=== PATIENT | male | born 1970 | race Caucasian/White ===

== ENCOUNTER 2017-08-28 17:15 | Observation (INO) ==
[2017-08-28] MEDS ORDERED: Naloxone 0.4 MG/ML INJ IVP PRN (21:34)
[2017-08-28] MEDS ORDERED: *HR* Dextrose 50 % in Water (Syg) 50 ML SYRINGE IVP PRN (21:34)
[2017-08-28] MEDS ORDERED: Dextrose Gel 15 GM/37.5 ML TUBE PO PRN ×2 (21:34)
[2017-08-28] MEDS ORDERED: Acetaminophen 325 MG TABLET PO PRN (21:34)
[2017-08-28] MEDS ORDERED: D5% in Water 1,000 ML IVC PRN (21:34)
[2017-08-28] MEDS ORDERED: *HR* OxyCODONE Immed Rel 5 MG TABLET PO PRN (21:34)
[2017-08-28] MEDS ORDERED: Nitroglycerin 0.4 MG TAB.SUBL SL PRN (21:39)
--- NOTE | 2017-08-28 21:44 | Internal Med History&Physical ---
Date of Encounter: 08/28/17 Time of Encounter: 21:20 Assessment and Plan (1) Chest pain Current visit: Yes Status: Acute 1. Will cycle troponins, EKG's. 2. Will order ECHO and tress test to be done in the morning. 3. Will try to obtain old records from [facility] in [place], [place] regarding NSTEMI and LHC. 4. Will consult cardiology if above testing abnormal and/or patient needs invasive work-up. Qualifiers: Chest pain type: precordial pain Qualified Code(s): R07.2 - Precordial pain (2) Syncope Current visit: Yes Status: Acute 1. Will proceed with Carotid Dopplers, ECHO, stress test, and close monitoring on telemetry. 2. Monitor glucose closely. 3. Further work-up if necessary. Qualifiers: Syncope type: unspecified Qualified Code(s): R55 - Syncope and collapse (3) Type 2 diabetes mellitus Current visit: Yes Status: Chronic 1. Will hold oral home meds and monitor glucose closely. 2. Will use SSI and adjust insulin dosing accordingly. Qualifiers: Diabetes mellitus complication status: without complication Diabetes mellitus computer terminal operator insulin use: without computer terminal operator use Qualified Code(s): E11.9 - Type 2 diabetes mellitus without complications (4) DVT prophylaxis Current visit: Yes Status: Acute 1. Heparin SQ. Internal Medicine - H&P: HPI Chief complaint: chest pain Admitted From: Hospital to Hospital Transfer Plans for Post Hospital Care: Home History of present illness: Mr. Andrew is a 47 year old male who presents in transfer from [facility] in [place]. He presented there earlier today after having developed chest pain with subsequent syncope. He woke up from bed having substernal chest pain and pressure, which was similar to his prior MA. He then developed a syncopal spell and passed out briefly while hitting the back of his head on the closet door. There was no witnessed seizure activity. He became arousable and back to his normal senses shortly thereafter. Nonetheless, his called EMS and he was taken to local ER. Workup there was negative. He and requested transfer here to [place] because patient follows with the cardiology group here. He has a history of non-STEMI requiring intervention several years ago. He was hospitalized in [place], [place] at [facility] for that episode which was roughly around 2012 or 2013. Upon my assessment of the patient, he is back to baseline and chest pain-free. His and brother are present and confirm the history. He does not recall event of passing out, but he does recall having chest pain earlier today. He denies any hypoglycemia. He is diabetic but his glucose runs around 130 range. His states she checked his sugar earlier today and it was around 140 when the episode occurred. He has a history of seizure disorder as a young child but has been seizure free for over 30 years. Based upon his history, it does not appear the patient had a seizures today but had a syncopal spell with the chest pain. Patient and deny patient having any fevers, cough, vomiting, diarrhea, headache, or any flulike illness/symptoms. Past Med Surg Social Fam HX - Past Medical History Attestation: Yes The following information was validated with the patient. Source: patient, old records reviewed, obtained from family Medical history: diabetes, GERD, hypertension, myocardial infarction, seizures ( in childhoood -- none in over 30 years) Psychiatric history: no psych history - Past Surgical History Surgical History: angioplasty/stent - Social History Smoking Status: Never smoker Smokeless Tobacco Status: No Alcohol use: none Drug use: none Current living situation: Home, With Family Activity Level: Independent ambulation, Very active Recent Out of Country Travel Within the Last 8 Weeks: No - Family History Mother Hx Family Cardiac Disorders: No Hx Family Respiratory Disorders: No Hx Family Cancer: No Hx Family GI Disorders: No Hx Family Genitourinary Disorders: No Hx Family Endocrine Disorder: No Hx Family Musculoskeletal Disorders: No Hx Family Neuromuscular Disorders: No Hx Family Neurologic Disorders: No Hx Family HEENT Disorders: No Hx Family Autoimmune Disorders: No Hx Family Reproductive Disorders: No Hx Family Psychosocial Disorders: No Hx Family Medical Disorders: No Father Hx Family Cardiac Disorders: Yes (pacer/defibulator) Hx Family Respiratory Disorders: No Hx Family Cancer: No Hx Family Genitourinary Disorders: No Hx Family Endocrine Disorder: Yes (diabetes) Hx Family Musculoskeletal Disorders: No Hx Family Neuromuscular Disorders: No Hx Family Neurologic Disorders: No Hx Family HEENT Disorders: No Hx Family Autoimmune Disorders: No Hx Family Reproductive Disorders: No Hx Family Psychosocial Disorders: No Hx Family Medical Disorders: No Internal Medicine - H&P: Meds Pravastatin Sodium [Pravachol] 40 mg PO HS 11/04/15 [History] Aspirin 81 mg PO DAILY 10/15/16 [History] Cetirizine HCl [24Hour Allergy] 10 mg PO DAILY 10/15/16 [History] Isosorbide MONOnitrate (24 HR) [Imdur] 30 mg PO DAILY 10/15/16 [History] Losartan Potassium [Cozaar] 100 mg PO DAILY 10/15/16 [History] Nitroglycerin [Nitrostat] 0.4 mg SL Q5M PRN 10/15/16 [History] Omeprazole [PriLOSEC] 20 mg PO DAILY 10/15/16 [History] metFORMIN [Glucophage] 500 mg PO BIDWM 10/15/16 [History] Metoprolol [Lopressor] 100 mg PO BID 08/28/17 [History] SitaGLIPtin [Januvia] 100 mg PO DAILY 08/28/17 [History] 3 Allergy/AdvReac Type Severity Reaction Status Date / Time No Known Allergies Allergy Verified 10/15/16 13:23 - Constitutional Constitutional: no chills, no fever(s), no night sweats - EENT Eyes: no blurry vision, no change in vision Ears: no ear pain, no tinnitus Nose, mouth and throat: no nasal congestion, no sinus pressure, no sore throat - Cardiovascular Cardiovascular ROS IM: chest pain, dyspnea, dyspnea on exertion, syncope, no orthopnea, no palpitations, no paroxysmal nocturnal dyspnea - Respiratory Respiratory: no cough, no hemoptysis, no chest congestion, no excessive phlegm production, no change in phlegm color - Gastrointestinal Gastrointestinal: no abdominal pain, no diarrhea, no hematemesis, no hematochezia, no melena, no vomiting - Genitourinary Genitourinary ROS male: no dysuria, no flank pain, no hematuria - Musculoskeletal Musculoskeletal ROS IM: no arthralgias, no back pain - Integumentary Integumentary IM: no rash, no jaundice - Neurological Neurological ROS: no convulsions, no dizziness, no focal weakness, no frequent falls, no weakness - Psychiatric Psychiatric: no anxiety, no depression - Endocrine Endocrine IM: no polydipsia, no polyuria - Hematologic/Lymphatic Hematologic/Lymphatic: no easy bruising, no lymphadenopathy - Allergic/Immunologic Allergic/Immunologic: no wheezing, no GI upset with certain foods - Constitutional Vitals: Temp Pulse Resp BP Pulse Ox 98.0 F 77 15 133/82 98 08/28/17 20:23 08/28/17 20:23 08/28/17 20:23 08/28/17 20:23 08/28/17 20:23 General appearance: Present: cooperative, A&O X 3, pleasant, no acute distress, answers questions appropriately - Head Head exam: Present: atraumatic, normal inspection - Expanded Head Exam Head exam expanded: Absent: abrasion, contusion, general tenderness, laceration - Eye Eye exam: Present: EOMI, normal appearance, PERRL. Absent: scleral icterus Pupils: Present: normal accommodation - ENT ENT exam: Present: mucous membranes dry, normal exam, normal oropharynx - Neck Neck exam general surgery: Present: full ROM, supple. Absent: lymphadenopathy, tenderness, nuchal rigidity, thyromegaly - Expanded Neck Exam Neck exam: Absent: carotid bruit - Respiratory Respiratory exam: Present: CTAB. Absent: chest wall tenderness, rales, rhonchi , wheezes - Cardiovascular Cardiovascular exam: Present: RRR, +S1, +S2. Absent: diastolic murmur, systolic murmur - GI/Abdominal GI/Abdominal exam: Present: normal bowel sounds, soft. Absent: hepatomegaly, mass, splenomegaly, tenderness - Extremities Exam Extremities exam: Present: full ROM, normal capillary refill, warm, radial pulses palpable and symmetrical. Absent: calf tenderness, joint swelling, tenderness - Back Exam Back exam: Absent: CVA tenderness (L), CVA tenderness (R) - Neurological Exam Neurological exam: Present: alert, CN II-XII intact, oriented X3, no focal deficits, strengths equal and symetr throughout - Psychiatric Psychiatric exam: Present: normal affect, normal mood - Skin Skin exam: Present: dry, warm. Absent: rash Internal Med - H&P Results - Labs Labs: I reviewed labs from [facility] and they include the following: WBC 7.2 Hemoglobin 15.0 Hematocrit 42.8 Platelets 197 Troponin < 0.015 Sodium 142 Potassium 4.0 Chloride 106 Carbon dioxide 24 BUN 11 Creatinine 0.[address] head report -- negative Chest x-ray report -- negative - EKG Data -: EKG Interpreted by Myself - EKG Data Prior EKG available for review: no EKG comments: 08/28/17 22:31 Sinus rhythm; Old septal MA; no acute St-T changes
[2017-08-28] MEDS: *HR* Heparin 5,000 UNIT/ML VIAL SQ SCH (22:48)
[2017-08-28] MEDS: 0.9 % Sodium Chloride 1,000 ML IVC SCH (22:49)
[2017-08-29] MEDS: Insulin LISPRO 300 UNITS/3 ML VIAL SQ SCH ×3 (00:53→11:49)
[2017-08-29] MEDS: *HR* Heparin 5,000 UNIT/ML VIAL SQ SCH (05:50)
[2017-08-29 06:16] LABS: Basophils % 0.8 %; Eosinophils # 0.2 K/mcL (0.0-0.6); Eosinophils % 3.2 %; Hematocrit 39.2 % (37.5-50.1); Hemoglobin 13.6 g/dL (12.9-16.9); Immature Granulocytes % 0.6 % (0-4); Lymphocytes # 1.7 K/mcL (0.6-4.6); Lymphocytes % 34.3 %; Mean Corpuscular HGB Conc 34.7 g/dL (31.6-35.5); Mean Corpuscular Volume 86.3 fL (83.0-100.0); Mean Platelet Volume 9.7 fL (9.4-12.4); Monocytes # 0.4 K/mcL (0.0-1.3); Monocytes % 7.8 %; Neutrophils # 2.7 K/mcL (1.6-8.9); Platelet Count 168 K/mcL (140-400); Red Blood Count 4.54 M/mcL (4.19-5.50); Red Cell Distribution Width 12.3 % (11.5-14.5); Segmented Neutrophils % 53.3 %
[2017-08-29 06:34] LABS: Alanine Aminotransferase 49 Units/L (7-52); Albumin 3.8 g/dL (3.5-5.7); Albumin/Globulin Ratio 1.5 (1.1-2.2); Alkaline Phosphatase 52 Units/L (34-104); Aspartate Amino Transferase 38 Units/L (13-39); BUN/Creatinine Ratio 15 (6-26); Bilirubin,Total 0.4 mg/dL (0.3-1.0); Blood Urea Nitrogen 11 mg/dL (6-20); Calcium 8.1 mg/dL (8.6-10.3); Carbon Dioxide 22 mEq/L (23-29); Chloride 106 mEq/L (98-107); Chol/HDL Ratio 6.9 (0-4.9); Cholesterol 165 mg/dL (< 200); Globulin 2.5 g/dL (2.4-3.5); Glucose 166 mg/dL (70-105); HDL Cholesterol 24 mg/dL (40-59); Magnesium 1.7 mg/dL (1.6-2.6); Osmolality,Calculated 283 (280-300); Potassium 3.7 mEq/L (3.5-5.1); Sodium 135 mEq/L (136-145); Total Protein 6.3 g/dL (6.4-8.9); Triglycerides 786 mg/dL (< 150); eGFR For African Americans > 60 (> 60); eGFR For Non-African Americans > 60 (> 60)
[2017-08-29 06:35] LABS: INR 1.1; Prothrombin Time 11.4 Seconds (9.4-12.1)
[2017-08-29 06:38] LABS: Activated Partial Thrombo Time 26.6 Seconds (26.0-36.0)
[2017-08-29] MEDS ORDERED: Loratadine 10 MG TABLET PO SCH (09:00)
[2017-08-29] MEDS ORDERED: Aspirin 81 MG TAB.CHEW PO SCH (09:00)
[2017-08-29] MEDS ORDERED: Metoprolol 100 MG TABLET PO SCH (09:00)
[2017-08-29] MEDS ORDERED: Isosorbide MONOnitrate (24 HR) 30 MG TAB.ER.24H PO SCH (09:00)
[2017-08-29] MEDS ORDERED: Regadenoson 0.4 MG/5 ML SYRINGE IVP ONE (09:09)
--- NOTE | 2017-08-29 11:34 | Internal Med Progress Note ---
Date of Encounter: 08/29/17 Time of Encounter: 11:32 - Assessment and plan (1) Syncope Current Visit: Yes Status: Acute Assessment and plan: This most likely is orthostatic related, given the heart rate changes today. It is possible he has POTS syndrome, I doubt this is seizure, does not appear to be arrhythmia either. Qualifiers: Syncope type: unspecified Qualified Code(s): R55 - Syncope and collapse (2) Essential hypertension Current Visit: Yes Status: Acute Assessment and plan: Control is somewhat labile, he would benefit from having serum metanephrines checked along with thyroid labs I am not yet sure we need to adjust his medication at this time. (3) Ischemic heart disease Current Visit: Yes Status: Chronic Assessment and plan: He showed no signs of ischemia, stress test results are still pending. (4) Type 2 diabetes mellitus Current Visit: Yes Status: Chronic Assessment and plan: Control appears okay, he was given some fluid to the emergency room, I do not believe he was overtly volume depleted upon admission. Qualifiers: Diabetes mellitus complication status: without complication Diabetes mellitus intermediate insulin use: without intermediate use Qualified Code(s): E11.9 - Type 2 diabetes mellitus without complications - Subjective Interval history: Sitting at the bedside, feeling well this morning, up walking around without issues. Just back from an exercise stress test, those results are pending. He admits feeling well during that test as well. I spoke with his about the spell yesterday, it appears that he got up from bed and then slumped back down, she does mention a spell of incoherence where he did not respond, she saw no seizure activities are as no loss of urination he did not bite his tongue. No previous bouts of syncope. He admits overall though he is out of shape. And admits compliance with medication. He also reports that his blood pressures up and down routinely. The spell was nothing like his previous heart attack - Constitutional Vitals: Temp Pulse Resp BP Pulse Ox 97.8 F 87 16 142/88 95 08/29/17 06:31 08/29/17 06:31 08/29/17 06:31 08/29/17 06:31 08/29/17 06:31 Orthostatics the bedside shows blood pressure really does not waver with standing versus lying, he is somewhat hypertensive with blood pressure about 160 /90. Heart rate though jumped up to 114 from 93 upon standing. General appearance: Present: cooperative, A&O X 3, pleasant, no acute distress, answers questions appropriately - ENT ENT exam: Present: mucous membranes moist - Neck Neck exam general surgery: Present: normal inspection, supple, trachea midline - Respiratory Respiratory exam: Present: CTAB. Absent: wheezes, tachypnea - Cardiovascular Cardiovascular exam: Present: RRR, tachycardia. Absent: systolic murmur - GI/Abdominal GI/Abdominal exam: Present: normal bowel sounds, soft, no peritoneal signs - Neurological Exam Neurological exam: Present: alert, CN II-XII intact, no focal deficits. Absent : abnormal gait, speech deficit Internal Medicine: Result - Labs CBC & Chem 7: 08/29/17 05:56 08/29/17 05:56 Labs: Short CBC 08/29/17 Range/Units 05:56 WBC 5.0 (4.3-11.1) K/mcL Hgb 13.6 (12.9-16.9) g/dL Hct 39.2 (37.5-50.1) % Plt Count 168 (140-400) K/mcL Neutrophils # 2.7 (1.6-8.9) K/mcL BMP 08/29/17 05:56 Sodium 135 L Potassium 3.7 Chloride 106 Carbon Dioxide 22 L BUN 11 Creatinine 0.73 Glucose 166 H Calcium 8.1 L Cardiac Enzymes 08/28/17 08/29/17 Range/Units 21:51 05:56 Troponin I < 0.03 < 0.03 (< 0.04) ng/mL Liver Function 08/29/17 Range/Units 05:56 Total Bilirubin 0.4 (0.3-1.0) mg/dL AST 38 (13-39) Units/L ALT 49 (7-52) Units/L Alkaline Phosphatase 52 (34-104) Units/L Albumin 3.8 (3.5-5.7) g/dL - ABG Interpretation ABG results: PT/INR, D-dimer PT 11.4 Seconds (9.4-12.1) 08/29/17 05:56 - Impressions Impressions Echocardiogram 08/29/17 21:34 Impressions: LVEF 65-70%. Normal LV chamber size and function. Moderate concentric left ventricular hypertrophy. Moderate left ventricular diastolic dysfunction. Normal right ventricular structure and function. Mild pulmonary hypertension. No significant valvular dysfunction. Left Ventricular Wall Motion: Rest Echo Findings All wall segments showed normal motion. Findings: Study Quality * Technically adequate exam. ECG Findings * Normal sinus rhythm. Left Ventricle * LVEF 65-70%. * Normal LV chamber size and function. * Moderate concentric left ventricular hypertrophy. * Moderate left ventricular diastolic dysfunction. Right Ventricle * Normal right ventricular structure and function. Left Atrium * Moderately dilated left atrium. Right Atrium * Mildly dilated right atrium. Interatrial Septum * Interatrial septum not well evaluated. Aortic Valve * Aortic valve not well visualized. * No aortic regurgitation. * No aortic stenosis. Mitral Valve * Mitral valve not well visualized. * No mitral regurgitation. * No mitral stenosis. Tricuspid Valve * Normal tricuspid valve structure and function. * Trace tricuspid regurgitation. * Mild pulmonary hypertension. Pulmonic Valve * Pulmonic valve is not well visualized. * No pulmonic regurgitation. Aorta * Normally sized aortic root. Pericardium * The pericardium appears normal. IVC * The IVC is not well evaluated. Pulmonary Artery * Pulmonary artery not well visualized. Consult Discharge Plan - Plan Referrals: Pavan Kim DO [Primary Care Provider] -
[2017-08-29] MEDS: 0.9 % Sodium Chloride 1,000 ML IVC SCH (11:43)
[2017-08-29 12:12] LABS: Hemoglobin A1C 7.3 %
[2017-08-29 15:13] VITALS: BP 136/85
--- NOTE | 2017-08-29 15:27 | Discharge Summary ---
Orders not resulted at time of discharge: Pending orders 08/28/17 21:39 NM sasha perf SPECT multi [NM] Routine 08/29/17 06:00 ECG 12 lead ECG [ECG] AM 0600 08/29/17 11:40 Metanephrines, Plasma (Free) Stat Date of Encounter: 08/30/17 Time of Encounter: 15:24 - Discharge Diagnosis (1) Essential hypertension Priority: Primary Status: Chronic Comments: Good control at this time (2) Ischemic heart disease Priority: Secondary Status: Chronic Comments: Appear stable at this time. no change in his home medications. (3) Type 2 diabetes mellitus Priority: Secondary Status: Chronic Comments: Appropriate control, probably did not contribute to his hospitalization. Qualifiers: Diabetes mellitus halfway insulin use: without halfway use Diabetes mellitus complication status: without complication Qualified Code(s): E11.9 - Type 2 diabetes mellitus without complications Hospital course: Mr. Andrew is a 47 year old male presented to the ER yesterday, after having a bout of syncope upon arising from bed. He has had uneventful hospital course , he does have postural tachycardia. His blood pressure really does not waver with orthostasis. All of this testing is comeback negative to include a negative stress test. With had no cardiac monitored events. He is certainly stable for discharge with close outpatient follow-up. Discharge discussed with: patient, family - Time Spent with Patient Total time spent providing and/or coordinating discharge services: - Discharge Medications Home Medications: Pravastatin Sodium [Pravachol] 40 mg PO HS 11/04/15 [History] Aspirin 81 mg PO DAILY 10/15/16 [History] Cetirizine HCl [24Hour Allergy] 10 mg PO DAILY 10/15/16 [History] Isosorbide MONOnitrate (24 HR) [Imdur] 30 mg PO DAILY 10/15/16 [History] Losartan Potassium [Cozaar] 100 mg PO DAILY 10/15/16 [History] Nitroglycerin [Nitrostat] 0.4 mg SL Q5M PRN 10/15/16 [History] Omeprazole [PriLOSEC] 20 mg PO DAILY 10/15/16 [History] metFORMIN [Glucophage] 500 mg PO BIDWM 10/15/16 [History] Metoprolol [Lopressor] 100 mg PO BID 08/28/17 [History] SitaGLIPtin [Januvia] 100 mg PO DAILY 08/28/17 [History] Allergies/Adverse Reactions: 3 Allergy/AdvReac Type Severity Reaction Status Date / Time No Known Allergies Allergy Verified 10/15/16 13:23 Date of admission: 08/28/17 19:36 Primary care physician: Pavan Kim DO - Constitutional Vitals: Temp Pulse Resp BP Pulse Ox 98.4 F 90 16 136/85 96 08/29/17 15:12 08/29/17 15:12 08/29/17 15:12 08/29/17 15:12 08/29/17 15:12 General appearance: Present: cooperative, A&O X 3, pleasant, no acute distress, answers questions appropriately - Patient Status Disposition: Home, Self-Care Condition: Good Functional capacity at discharge: independent ambulation Overall status at discharge: patient is back to baseline - Discharge Instructions Instructions: Angina (DC), Chest Pain (DC) Follow Up With: Pavan Kim DO [Primary Care Provider] - 09/02/17 10:20 am - Diet and Activity Diet: diabetic diet
[2017-09-01 18:02] LABS: Metanephrine, Plasma 0.12 nmol/L (0.00-0.49)
== END 2017-08-29 18:30 | disposition home or self-care (01) ==
LOC: 3BNU
PROVIDERS: ADMIT Pediatrics; ATTEND Registered Nurse